=== PATIENT | male | born 1990 | race Caucasian/White ===

== ENCOUNTER 2021-08-09 16:21 | Emergency (ER) | payer OTHER ==
[~2021-08-09] VITALS: Ht 177.8 cm; Wt 84.1 kg
[~2021-08-09 16:21] MED LIST: CEPHALEXIN500 M1 PO; LEVAQUIN 5500 MG/TA1 PO; NO HOME MEDICATIONS; PERCOCET 325 MG1 TA2 PO; [UNRECOGNIZED DRUG - REMARK] PO
[2021-08-09 16:34] VITALS: TEMP 98.1
[2021-08-09 16:50] LABS: COLLECTION METHOD CLEAN CATCH
[2021-08-09 16:57] LABS: AMORPHOUS CRYSTAL Present (NOT PRESENT); MUCOUS Present (NOT PRESENT); PH 7 (5-8); SQUAMOUS EPITHELIAL None Seen /hpf (0-10); URINE APPEARANCE Cloudy (CLEAR/HAZY); URINE BACTERIA None Seen /hpf (NONE SEEN); URINE BILIRUBIN Negative (NEGATIVE); URINE BLOOD Negative (NEGATIVE); URINE COLOR Yellow (YELLOW); URINE GLUCOSE Negative (NEGATIVE); URINE KETONE Negative (NEGATIVE); URINE LEUKOCYTE ESTERASE Negative (NEGATIVE); URINE NITRATE Negative (NEGATIVE); URINE PROTEIN(semi-quant) Negative (NEGATIVE); URINE RBC None Seen /hpf (0-2); URINE UROBILINOGEN Negative (NEGATIVE)
[2021-08-09] MEDS ORDERED: DOXYCYCLINE 10100 MG PO (17:56)
[2021-08-09 18:08] VITALS: BP 141/88; PULSE 88
== END 2021-08-09 18:08 | disposition home or self-care (01) ==
LOC: COL.ER 16:21
PROVIDERS: Family Medicine
DX: N45.1 Epididymitis (principal); F17.210 Nicotine dependence, cigarettes, uncomplicated